=== PATIENT | male | born 1995 | race African-American/Black ===

== ENCOUNTER 2020-08-06 03:45 | Emergency (ER) | payer BC ==
[2020-08-06] MEDS ORDERED: Acetaminophen 500 MG TAB ONE (04:02)
--- NOTE | 2020-08-06 07:40 | RAD ---
EXAM: Single view of the chest HISTORY: Chest pain after chest trauma COMPARISON: None FINDINGS: Single view of the chest shows a normal sized cardiomediastinal silhouette. There is no sergey dence of consolidation, mass, or pleural effusion. No acute osseous abnormality. IMPRESSION: No evidence of acute cardiopulmonary disease
== END 2020-08-06 04:20 | disposition home or self-care (01) ==
LOC: ERS 03:45
DX: S20.219A Contusion of unspecified front wall of thorax, initial encounter (principal); X58.XXXA Exposure to other specified factors, initial encounter; Y99.0 Civilian activity done for income or pay
CPT/HCPCS: 71045